=== PATIENT | female | born 1980 | race Caucasian/White ===

== ENCOUNTER 2017-09-03 10:00 | Emergency (ER) | payer OTHER ==
[2017-09-03 10:46] VITALS: BP 104/61; PULSE 83; RESP 16; TEMP 98.7; O2SAT 100
[2017-09-03 11:17] LABS: BASO % 0.4 % (0.0-2.0); EOS % 0.7 % (0.0-4.0); HEMATOCRIT 39.5 % (34.0-47.0); LYMPH # 0.8 K/uL (1.0-4.3); LYMPH % 17.8 % (20.0-40.0); MEAN CORPUSCULAR HEMOGLOBIN 30.6 pg (27.0-31.0); MEAN CORPUSCULAR HGB CONC 34.4 g/dL (33.0-37.0); MONO # 0.2 K/uL (0.0-0.8); MONO % 3.2 % (0.0-10.0); NEUT # 3.7 K/uL (1.8-7.0); NEUT % 77.9 % (50.0-75.0); NRBC % 0.1 % (0.0-0.0); WHITE BLOOD COUNT 4.8 K/uL (4.8-10.8)
[2017-09-03 11:29] LABS: RBC URINE 2 /hpf (0-3); URINE BACTERIA RARE (<OCC); URINE BILIRUBIN NEGATIVE (NEGATIVE); URINE BLOOD NEGATIVE (NEGATIVE); URINE COLOR YELLOW (YELLOW); URINE GLUCOSE (UA) NEG (Normal); URINE KETONE NEGATIVE (NEGATIVE); URINE LEUKOCYTE ESTERASE TRACE Leu/uL (Negative); URINE PROTEIN NEGATIVE (NEGATIVE); URINE UROBILINOGEN 0.2-1.0 mg/dL (0.2-1.0); WBC URINE 19 /hpf (0-5)
--- NOTE | 2017-09-03 12:13 | CT ---
PROCEDURE: CT Abdomen and Pelvis without intravenous contrast HISTORY: L flank pain x3 days COMPARISON: None. TECHNIQUE: CT scan of the abdomen and pelvis was performed without administration of intravenous contrast. Oral contrast was not administered. Coronal and sagittal reformatted images were obtained. Radiation dose: Total exam DLP = 552.64 mGy-cm. This CT exam was performed using one or more of the following dose reduction techniques: Automated exposure control, adjustment of the mA and/or kV according to patient size, and/or use of iterative reconstruction technique. FINDINGS: LOWER THORAX: There is dependent atelectasis in the lung bases. LIVER: The liver is normal in size. No gross lesion or ductal dilatation. GALLBLADDER AND BILE DUCTS: The gallbladder is partially contracted. No calcified gallstones. PANCREAS: The pancreas is normal in size. No gross lesion or ductal dilatation. SPLEEN: There is borderline splenomegaly. ADRENALS: Both adrenal glands are normal in size without discrete nodule. KIDNEYS AND URETERS: Both kidneys are normal in size. No hydronephrosis or nephrolithiasis. There are small low-attenuation areas in the kidneys, too small to characterize by CT criteria and may represent cortical cysts. VASCULATURE: No aortic aneurysm. BOWEL: The small bowel loops are normal in caliber. The various moderate amount of stool in the colon. No bowel dilatation or obstruction the APPENDIX: Normal appendix. PERITONEUM: Go No free fluid. No free air. LYMPH NODES: Unremarkable. No enlarged lymph nodes. BLADDER: Unremarkable. REPRODUCTIVE: The uterus is anteverted and normal in size. An IUD remains in satisfactory position. BONES: No acute fracture. OTHER FINDINGS: None. IMPRESSION: No nephrolithiasis, hydronephrosis or obstructive uropathy. Please note pyelonephritis cannot be excluded on noncontrast examination. Please correlate with urine analysis.
[2017-09-03 12:36] LABS: ALB/GLOB RATIO 1.2 (1.0-2.1); ALKALINE PHOSPHATASE 108 U/L (38-126); ALT/SGPT 61 U/L (9-52); AST/SGOT 37 U/L (14-36); BILIRUBIN,TOTAL 0.5 mg/dl (0.2-1.3); BLOOD UREA NITROGEN 8 mg/dl (7-17); CALCIUM 8.8 mg/dL (8.4-10.2); CARBON DIOXIDE 23 mmol/L (22-30); CHLORIDE 109 mmol/L (98-107); GFR AFRICAN-AMERICAN > 60; GLUCOSE,RANDOM 88 mg/dL (65-105); LIPASE 55 U/L (23-300); SODIUM 143 mmol/l (132-148); TOTAL PROTEIN 7.6 G/DL (6.3-8.2)
[2017-09-03] MEDS ORDERED: cefTRIAXone IV 1 gm in Dextros 50 ML IVPB STA (12:48)
[2017-09-03] MEDS ORDERED: cefTRIAXone IV 1 gm in Dextros 50 ML IVPB ONE (14:03)
--- NOTE | 2017-09-03 16:15 | ED PDOC ---
HPI: Back Time Seen by Provider: 09/03/17 10:16 Chief Complaint (Nursing): Back Pain Chief Complaint (Provider): flank pain History Per: Patient History/Exam Limitations: no limitations Onset/Duration Of Symptoms: Days (x3) Current Symptoms Are (Timing): Still Present Additional Complaint(s): Batool is a 37 year old female who presents to the emergency department with a complaint of left-sided back pain, similar to UTI/kidney infection that she had 3 years ago, ongoing for 3 days. Denied fever, chills, vomiting, diarrhea, dyuria or urinary symptoms. PMD: none provided Past Medical History Reviewed: Historical Data, Nursing Documentation, Vital Signs Vital Signs: Last Vital Signs Temp 98.7 F 09/03/17 10:44 Pulse 83 09/03/17 10:44 Resp 16 09/03/17 10:44 BP 104/61 09/03/17 10:44 Pulse Ox 100 09/03/17 10:44 - Medical History PMH: No Chronic Diseases - Surgical History Surgical History: No Surg Hx - Family History Family History: States: Unknown Family Hx - Social History Current smoker - smoking cessation education provided: No Ex-Smoker (has not smoked in the last 12 months): No Alcohol: None Drugs: Denies - Home Medications Home Medications: Ambulatory Orders Medication Instructions Recorded Nitrofurantoin Macrocrystals 100 mg PO BID #20 cap 07/28/14 [Macrobid] Ciprofloxacin [Cipro] 500 mg PO BID #14 tab 09/03/17 Naproxen [Naprosyn] 500 mg PO BID PRN #14 tablet 09/03/17 - Allergies Allergies/Adverse Reactions: Allergies Allergy/AdvReac Type Severity Reaction Status Date / Time No Known Allergies Allergy Verified 09/03/17 10:44 Review of Systems ROS Statement: Except As Marked, All Systems Reviewed And Found Negative Constitutional: Negative for: Fever, Chills Gastrointestinal: Negative for: Vomiting, Diarrhea Genitourinary Female: Negative for: Dysuria, Frequency, Hematuria Musculoskeletal: Positive for: Back Pain (left flank) Physical Exam - Reviewed Nursing Documentation Reviewed: Yes Vital Signs Reviewed: Yes - Physical Exam Appears: Positive for: Well, Non-toxic, No Acute Distress Head Exam: Positive for: ATRAUMATIC, NORMAL INSPECTION, NORMOCEPHALIC Skin: Positive for: Normal Color Eye Exam: Positive for: Normal appearance ENT: Positive for: Normal ENT Inspection Neck: Positive for: Normal Cardiovascular/Chest: Positive for: Regular Rate, Rhythm, Chest Non Tender Respiratory: Positive for: Normal Breath Sounds, Accessory Muscle Use. Negative for: Decreased Breath Sounds, Respiratory Distress Gastrointestinal/Abdominal: Positive for: Tenderness. Negative for: Normal Exam Back: Positive for: L CVA Tenderness (mild). Negative for: Normal Inspection, R CVA Tenderness Extremity: Positive for: Normal ROM. Negative for: Tenderness, Pedal Edema Neurologic/Psych: Positive for: Alert, Oriented - Laboratory Results Result Diagrams: 09/03/17 11:06 09/03/17 12:04 - ECG O2 Sat by Pulse Oximetry: 100 (RA) Pulse Ox Interpretation: Normal Medical Decision Making Medical Decision Making: Initial Impression: Flank pain Initial Plan: * CT ABD/pelvis without contrast * CMP * Lipase * Urine * Urine dipstick * CBC * Rocephin 50ml IVPB * Toradol 30mg IV * Urine culture * Urinalysis Time: 1211 --CT ABD/pelvis FINDINGS: LOWER THORAX: There is dependent atelectasis in the lung bases. LIVER: The liver is normal in size. No gross lesion or ductal dilatation. GALLBLADDER AND BILE DUCTS: The gallbladder is partially contracted. No calcified gallstones. PANCREAS: The pancreas is normal in size. No gross lesion or ductal dilatation. SPLEEN: There is borderline splenomegaly. ADRENALS: Both adrenal glands are normal in size without discrete nodule. KIDNEYS AND URETERS: Both kidneys are normal in size. No hydronephrosis or nephrolithiasis. There are small low-attenuation areas in the kidneys, too small to characterize by CT criteria and may represent cortical cysts. VASCULATURE: No aortic aneurysm. BOWEL: The small bowel loops are normal in caliber. The various moderate amount of stool in the colon. No bowel dilatation or obstruction the APPENDIX: Normal appendix. PERITONEUM: Go No free fluid. No free air. LYMPH NODES: Unremarkable. No enlarged lymph nodes. BLADDER: Unremarkable. REPRODUCTIVE: The uterus is anteverted and normal in size. An IUD remains in satisfactory position. BONES: No acute fracture. OTHER FINDINGS: None. IMPRESSION: No nephrolithiasis, hydronephrosis or obstructive uropathy. Please note pyelonephritis cannot be excluded on noncontrast examination. Please correlate with urine analysis. Time: 1400 --Given normal WBC, lack of fever and improvement of symptoms upon provider reevaluation, patient requires no further treatment in the ED at this time. Patient will be discharged home with Rx and advised to follow up for urine culture results. Counseling was provided and all questions were answered regarding diagnosis and need for follow up with PCP. There is agreement to discharge plan. Return if symptoms persist or worsen. Clinical Impression: Pyelonephritis Scribe Attestation: Documented by Sabrina Bonner, acting as a scribe for Miguelito Fisher III, DO. Provider Scribe Attestation: All medical record entries made by the Scribe were at my direction and personally dictated by me. I have reviewed the chart and agree that the record accurately reflects my personal performance of the history, physical exam, medical decision making, and the department course for this patient. I have also personally directed, reviewed, and agree with the discharge instructions and disposition. Disposition - Clinical Impression Clinical Impression: Pyelonephritis - Patient ED Disposition Is Patient to be Admitted: No Counseled Patient/Family Regarding: Studies Performed, Diagnosis, Need For Followup, Rx Given - Disposition Referrals: [facility] [Outside] Disposition: Routine/Home Disposition Time: 14:00 Condition: STABLE Additional Instructions: Return to ER for any worse or new symptoms. Take medications as directed. Drink plenty of fluids. Prescriptions: Ciprofloxacin [Cipro] 500 mg PO BID #14 tab Naproxen [Naprosyn] 500 mg PO BID PRN #14 tablet PRN Reason: Pain, Moderate (4-7) Instructions: Urinary Tract Infection in Women (ED), Acute Pyelonephritis (ED) Forms: Modern Message (Armenian) Print Language: TUVAL[place]
== END 2017-09-03 16:20 | disposition home or self-care (01) ==
LOC: H.ER 10:00
DX: N12 Tubulo-interstitial nephritis, not specified as acute or chronic (principal)
CPT/HCPCS: 74176; 80053; 81003; 81025; 83690; 85025; 87086; 87181; 96365; 99283; J0696; J1885